=== PATIENT | female | born 1965 | race Caucasian/White ===

== ENCOUNTER 2017-05-01 05:33 | Observation (INO) | payer OTHER ==
[2017-05-01] MEDS ORDERED: GABAPENTIN 400 MG CAP PO ONE (06:02)
[2017-05-01] MEDS ORDERED: PHENAZOPYRIDINE HCL 200 MG TAB PO ONE (06:02)
[2017-05-01] MEDS ORDERED: ACETAMINOPHEN 500 MG TAB PO ONE (06:02)
[2017-05-01] MEDS ORDERED: ceFAZolin 2 GM/SWFI 2 GM/20 ML SYR IVP ONE (06:02)
[2017-05-01] MEDS ORDERED: LIDOCAINE 1% 2 ML INJ ID PRN (06:03)
[2017-05-01] MEDS ORDERED: LR 1,000 ML IV ONE (06:03)
[2017-05-01] MEDS ORDERED: BUPIVACAINE/EPI 0.5% 30 ML SDV ONE (06:24)
--- NOTE | 2017-05-01 06:46 | PDANEPAE ---
ANE Past Medical History - Cardiovascular History Hx Hypertension: No Hx Arrhythmias: No Hx Chest Pain: No Hx Coronary Artery / Peripheral Vascular Disease: No Hx CHF / Valvular Disease: No Hx Palpitations: No - Pulmonary History Hx COPD: No Hx Asthma/Reactive Airway Disease: No Hx Recent Upper Respiratory Infection: No Hx Oxygen in Use at Home: No Hx Sleep Apnea: No Sleep Apnea Screening Result - Last Documented: Negative Pulmonary History Comment: RECENT SORE THROAT - Neurologic History Hx Cerebrovascular Accident: No Hx Seizures: No Hx Dementia: No - Endocrine History Hx Diabetes: No - Renal History Hx Renal Disorders: Yes Renal History Comment: PROLAPSED BLADDER. RECTOCELE - Liver History Hx Hepatic Disorders: No - Neurological & Psychiatric Hx Hx Neurological and Psychiatric Disorders: No - Cancer History Hx Cancer: No - Congenital Disorder History Hx Congenital Disorders: No - GI History Hx Gastrointestinal Disorders: No - Other Health History Other Health History: LT HIP DISCOMFORT POST summer - Surgical History Prior Surgeries: PAMELLA BREAST AUGMENTATION. BLADDER REPAIR ANE Review of Systems Review of systems is: negative Review of Systems: - Exercise capacity Exercise capacity: >=4 METS METS (RN): 6 METS ANE Patient History - Allergies Allergies/Adverse Reactions: sulfamethoxazole [From Septra] Allergy (Verified 04/26/17 14:16) RED RASH trimethoprim [From Septra] Allergy (Verified 04/24/17 14:04) - Home Medications Home medications: home medication list seen and reviewed Home Medications: Estrogens,Conjugated [Premarin Vaginal (*)] 1 robert VG .TWICEWEEKLY 04/24/17 [ Last Taken 04/24/17] Testosterone Micronized 2 mg PO DAILY 04/24/17 [Last Taken 04/27/17] - NPO status NPO Since - Liquids (Date): 05/01/17 NPO Since - Liquids (Time): 05:00 NPO Since - Solids (Date): 04/30/17 NPO Since - Solids (Time): 19:00 - Anes Hx Anes Hx: no prior problems - Smoking Hx Smoking Status: Never smoked ANE Labs/Vital Signs - Vital Signs Blood Pressure: 104/56 Heart Rate: 74 Respiratory Rate: 16 O2 Sat (%): 95 Height: 170.18 cm Weight: 59.874 kg ANE Physical Exam - Airway Neck exam: FROM Mallampati Score: Class 2 Mouth exam: small mouth opening - Pulmonary Pulmonary: no respiratory distress - Cardiovascular Cardiovascular: regular rate and rhythym - ASA Status ASA Status: II ANE Anesthesia Plan Anesthesia Plan: general endotracheal anesthesia
[2017-05-01] MEDS ORDERED: MIDAZOLAM 2 MG/2 ML VIAL IVP ONE (06:54)
[2017-05-01] MEDS ORDERED: PROPOFOL 200 MG/20 ML VIAL ONE (07:03)
[2017-05-01] MEDS ORDERED: fentaNYL 250 MCG/5 ML INJ ONE (07:03)
--- NOTE | 2017-05-01 07:04 | PDHPUP ---
History & Physical Update H&P update statement: This history and physical update is based on an assessment of the patient which was completed after admission or registration (within 24 hours), but prior to the surgery/procedure. H&P update: H&P reviewed & patient examined, no change in patient's condition since H&P completed
[2017-05-01] MEDS ORDERED: KETOROLAC 30 MG/1 ML SDV ONE (07:06)
[2017-05-01] MEDS ORDERED: DEXAMETHASONE 4 MG/ML VIAL ONE (07:06)
[2017-05-01] MEDS ORDERED: ROCURONIUM 100 MG/10 ML VIAL ONE (07:06)
[2017-05-01] MEDS ORDERED: SUGAMMADEX SODIUM 200 MG/2 ML VIAL IVP ONE (07:07)
[2017-05-01] MEDS ORDERED: ONDANSETRON 4 MG/2 ML VIAL ONE (07:07)
[2017-05-01] MEDS ORDERED: ACETAMINOPHEN 500 MG TAB PO PRN (09:18)
[2017-05-01] MEDS ORDERED: fentaNYL 100 MCG/2 ML INJ IVP PRN (09:18)
[2017-05-01] MEDS ORDERED: ALBUTEROL 3 ML DEYVIAL IH PRN (09:18)
[2017-05-01] MEDS ORDERED: HYDROmorphONE/DILAUDID 1 MG/ML INJ IVP PRN ×2 (09:18→10:05)
[2017-05-01] MEDS ORDERED: OXYCODONE/APAP 5/325 TAB PO PRN ×2 (09:18→10:05)
[2017-05-01] MEDS ORDERED: LR 500 ML IV PRN (09:18)
[2017-05-01] MEDS ORDERED: PROMETHAZINE HCL 25 MG/ML INJ IVP PRN ×2 (09:18→10:05)
[2017-05-01] MEDS ORDERED: ONDANSETRON 4 MG/2 ML VIAL IVP PRN ×2 (09:18→10:05)
[2017-05-01] MEDS ORDERED: NALOXONE HCL 0.4 MG/ML INJ IVP PRN (09:18)
--- NOTE | 2017-05-01 09:19 | POSTANESTH ---
Post Anesthetic Evaluation Cardiovascular Status: Normal, Stable Respiratory Status: Normal, Stable Level of Consciousness/Mental Status: Can Participate in Eval Pain Control: Adequate, Prn Tx Ordered Nausea/Vomiting Control: Adequate, Prn Tx Ordered Complications Possibly Related to Anesthesia: None Noted
--- NOTE | 2017-05-01 10:05 | POSTOPPROG ---
Post Op Note Date of Operation: 05/01/17 Surgeon: Cem Goyal Payroll Master: Lashae Weaver Anesthesia: GET(General Endotracheal) Pre-op Diagnosis: Uterovaginal prolapse Post-op Diagnosis: Same Procedure: Robotic hyst, sacrocolpopexy, cysto Findings: Ureters function at end of case Inf/Abcess present in the surg proc area at time of surgery?: No EBL: Minimal Complications: None
[2017-05-01] MEDS ORDERED: LR 1,000 ML IV SCH (10:30)
[2017-05-01] MEDS ORDERED: fentaNYL 100 MCG/2 ML INJ ONE (10:35)
[2017-05-01] MEDS ORDERED: KETOROLAC 30 MG/1 ML SDV IVP SCH (12:00)
[2017-05-01] MEDS: KETOROLAC 30 MG/1 ML SDV IVP SCH ×2 (15:43→22:12)
[2017-05-01 17:31] VITALS: RESP 16
[2017-05-01] MEDS: SIMETHICONE 80 MG TAB CHEW PO SCH ×3 (17:49→22:09)
[2017-05-01] MEDS ORDERED: ACETAMINOPHEN 325 MG TAB PO PRN (20:00)
[2017-05-01] MEDS: DOCUSATE SODIUM 100 MG CAP PO SCH (20:33)
--- NOTE | 2017-05-02 03:40 | GOP ---
[f rep st] OPERATIVE REPORT DATE OF OPERATION: 05/01/2017 SURGEON: Cem Goyal MD PROGRESSIVE CARE MANAGER: Lashae Weaver CFA ANESTHESIA: General. PREOPERATIVE DIAGNOSIS: Symptomatic uterovaginal prolapse. POSTOPERATIVE DIAGNOSIS: Symptomatic uterovaginal prolapse. PROCEDURE PERFORMED: 1. Robotic-assisted laparoscopic hysterectomy, bilateral salpingectomy. 2. Robotic-assisted laparoscopic sacrocervicopexy with mesh. 3. Repair of cystocele and rectocele. 4. Cystoscopy. 5. Perineorrhaphy. FINDINGS: SPECIMENS: Uterus, bilateral tubes. ESTIMATED BLOOD LOSS: Scant. DESCRIPTION OF PROCEDURE: The patient was taken to the operating room where she was identified. Gen eral anesthesia was administered and found to be adequate. She was placed in the lithotomy position and prepared and draped in normal sterile fashion. A Brito catheter was placed in her bladder. A 1 cm infraumbilical incision was made with a scalpel. The Veress needle with CO2 gas flowing was a dvanced into the peritoneal cavity. The abdomen was then insufflated with carbon dioxide gas. The 1 2 mm trocar followed by the laparoscope were then inserted. The upper abdomen was unremarkable. Two lateral ports were placed on either side, under direct visualization. She then was placed in [place] position, and the da Ariana robot docked on the left side. The instruments were then brought into the abdominal cavity under direct visualization. The left fallopian tube was along the mesosalpinx. The uteroovarian ligament, followed by the round ligament were then cauterized and transected. The anterior leaf of the broad ligament was then incised over the left uterine vessels and across the cervix. The bladder was gently dissected o ff the cervix and upper vagina. The left uterine vasculature was then cauterized and transected. Th e exact same procedure was performed on the patient's right side. The uterus was then bivalved to ai d in removal through the umbilicus. The uterus and upper 2/3 of the cervix were amputated from the l ower third of the cervix with the hot dolly. The specimen was then placed in the right upper quadra nt for later removal. The Colpo-Probe was placed in the vagina. The bladder was further dissected off the anterior vaginal wall down to the level of bladder neck. The rectovaginal space was then entered, and the rectum dis sected off the posterior vaginal wall down to the level of the perineal body. Measurements were then obtained, and the mesh trimmed to size. The sigmoid colon was then retracted laterally. The sacral promontory was identified, and the overlying peritoneum incised. The fat pad was gently dissected o ff the anterior longitudinal ligament. The cervical stump was closed with a yihyam-iq-mecht suture of 0 Monocryl. The mesh was brought into the abdominal cavity. Three sutures of 4-0 [place] were used to attach the distal posterior mesh t o the perineal body. Two additional rows of [place] sutures were placed posteriorly. Three rows we re placed anteriorly to suture the mesh down to the bladder neck and laterally to the paravaginal tis kevin. Colpo-Probe was then removed. The sacral arm of the mesh was placed over the promontory, and t he tension adjusted. Two sutures of 2-0 [place] were used to attach the sacral arm of the mesh to t he anterior longitudinal ligament at the level of the upper first sacral vertebral body. The periton eum was then closed over the entire mesh. The robot was then undocked. The specimen was removed through the umbilicus. The fascia was closed with 0 Vicryl, skin with 4-0 Monocryl and surgical adhesive. A transverse incision was then made along the perineal body. The posterior vaginal epithelium was un dermined with the Metzenbaum scissors and incised sagittally. The epithelium was then gently dissect ed off the underlying rectovaginal connective tissue. The connective tissue was plicated. With inte rrupted sutures of 0 Vicryl. The excess epithelium was then trimmed and closed with a running 2-0 Vi cryl suture. Cystoscopy was then performed. Both ureters had vigorous jets of urine. There was no evidence of bladder nor urethral injury seen. No mesh nor suture was seen within the bladder. No ob vious pathology was seen. Vaginal packing was then placed. Anesthesia was reversed. The patient ta breanna to the PACU awake, in stable condition. COMPLICATIONS: None. DISPOSITION: Patient stable to PACU. /[id number]/MODL
[2017-05-02] MEDS: KETOROLAC 30 MG/1 ML SDV IVP SCH (04:30)
[2017-05-02 04:45] VITALS: TEMP 98.3
[2017-05-02] MEDS ORDERED: FLU VACC QS 2017-18 (3YR+)/PF 0.5 ML SYR (FLUARIX QUAD) IM ONE (08:05)
[2017-05-02] MEDS: SIMETHICONE 80 MG TAB CHEW PO SCH (08:06)
[2017-05-02 09:50] VITALS: BP 97/63; PULSE 63; O2SAT 94
[2017-05-02] MEDS: DOCUSATE SODIUM 100 MG CAP PO SCH (10:19)
--- NOTE | 2017-05-03 15:16 | GDS ---
[f rep st] DISCHARGE SUMMARY DISCHARGE DIAGNOSIS: Uterovaginal prolapse. PROCEDURES: 1. Robotic-assisted laparoscopic hysterectomy, bilateral salpingectomy. 2. Robotic-assisted laparoscopic sacrocervicopexy with mesh. 3. Repair of cystocele and rectocele. 4. Cystoscopy. HISTORY: This patient is a 51-year-old female with symptomatic uterovaginal prolapse. She was taken to the operating room on 05/01/2017, where she underwent the above-mentioned procedures without comp lications. Postoperatively, her course was uneventful. The morning after surgery, she was ambulating, voiding, and tolerating a general diet. She was discharged home on postoperative day #1 in good condition. Medications included Percocet and ibuprofen for pain. She is to follow up in the office 2 weeks after discharge. /[id number]/MODL
== END 2017-05-02 11:49 | disposition home or self-care (01) ==
LOC: F3N 05:33 → FOB 11:10
PROVIDERS: ADMIT Obstetrics & Gynecology; ATTEND Obstetrics & Gynecology
PROC: 0UT74ZZ Resection of Bilateral Fallopian Tubes, Percutaneous Endoscopic Approach (ICD-10-PCS; principal; 2017-05-01 07:15)
PROC: 0JQC0ZZ Repair Pelvic Region Subcutaneous Tissue and Fascia, Open Approach (ICD-10-PCS; principal; 2017-05-01 07:15)
PROC: 0UT94ZZ Resection of Uterus, Percutaneous Endoscopic Approach (ICD-10-PCS; principal; 2017-05-01 07:15)
PROC: 0WQN0ZZ Repair Female Perineum, Open Approach (ICD-10-PCS; principal; 2017-05-01 07:15)
DX: N81.4 Uterovaginal prolapse, unspecified (principal)
CPT/HCPCS: 57250; 57285; 58571; 90471; G0378; C1763; G0008; J0690; J1100; J1885; J2250; J2405; J2704; J3010

== ENCOUNTER → 2018-01-31 | Outpatient (CLI) | payer OTHER ==
[~2018-01-31] MED LIST: IOPAMIDOL (ISOVUE-300) 100 ML BTL ONE
== END ==
LOC: FIMAGING 14:35
DX: K76.89 Other specified diseases of liver (principal); K42.9 Umbilical hernia without obstruction or gangrene
CPT/HCPCS: Q9967